=== PATIENT | female | born 1950 | race Caucasian/White ===

== ENCOUNTER → 2016-09-30 | Outpatient (CLI) | payer OTHER ==
[~2016-09-30] MED LIST: NORCO 325 MG-51 TAB PO
== END ==
LOC: MC.RAD 08:27 → EDBD 08:27 → MC.RAD 08:30
DX: C50.912 Malignant neoplasm of unspecified site of left female breast (principal); Z53.20 Procedure and treatment not carried out because of patient's decision for unspecified reasons

== ENCOUNTER 2016-10-29 07:05 | Day surgery (SDC) | payer MEDICAID ==
[~2016-10-29] VITALS: Ht 162.6 cm; Wt 94.8 kg
[2016-10-29 07:42] VITALS: BP 147/83; PULSE 72; TEMP 97.8
[2016-10-29 09:38] VITALS: BP 120/72; PULSE 81; TEMP 97.2
[2016-10-29] MEDS ORDERED: NORCO 325 MG-51 TAB PO (09:41)
[2016-10-29 09:53] VITALS: BP 132/70; PULSE 61
[2016-10-29 10:08] VITALS: BP 143/71; PULSE 57
[2016-10-29 10:23] VITALS: BP 135/70; PULSE 61
== END 2016-10-29 11:10 | disposition home or self-care (01) ==
LOC: SDCO 07:05
DX: M19.90 Unspecified osteoarthritis, unspecified site (principal); C50.412 Malignant neoplasm of upper-outer quadrant of left female breast; Z51.11 Encounter for antineoplastic chemotherapy
CPT/HCPCS: C1788; J0690; J1644; J2704; J3010; J7120

== ENCOUNTER 2017-03-26 06:41 | Day surgery (SDC) | payer MEDICAID ==
[2017-03-26] VITALS (9 sets, daily range): BP systolic 112–147; BP diastolic 51–74; PULSE 76–94; TEMP 98–98.1
[~2017-03-26] VITALS: Ht 162.6 cm; Wt 92.6 kg
[2017-03-26] MEDS ORDERED: CLARITIN 1010 MG/TAB PO (08:03)
[2017-03-26] MEDS ORDERED: KLOR-CON M2020 MEQ PO (08:03)
[2017-03-26] MEDS ORDERED: NEURONTIN300 MG/CAP PO ×2 (08:04→16:06)
[2017-03-26] MEDS ORDERED: NORCO 325 MG-51 TAB PO (08:04)
[2017-03-26] MEDS ORDERED: LASIX 40MG TABL40 MG PO (08:04)
[2017-03-27] VITALS: BP 118/60; PULSE 84; TEMP 98.5
[2017-03-27 04:00] VITALS: BP 122/65; PULSE 83; TEMP 97.9
== END 2017-03-27 09:45 | disposition home or self-care (01) ==
LOC: SDCO 06:41 → SURG 14:12 → SDCO 03-27 09:45
DX: C50.412 Malignant neoplasm of upper-outer quadrant of left female breast (principal); Z17.0 Estrogen receptor positive status [ER+]; G62.0 Drug-induced polyneuropathy; Z82.49 Family history of ischemic heart disease and other diseases of the circulatory system; Z88.2 Allergy status to sulfonamides; I10 Essential (primary) hypertension; R05 Cough; Z92.21 Personal history of antineoplastic chemotherapy; Z68.36 Body mass index [BMI] 36.0-36.9, adult; M19.90 Unspecified osteoarthritis, unspecified site
CPT/HCPCS: OP; A9541; J0690; J1644; J2250; J2270; J2704; J2795; J3010; J7120